=== PATIENT | male | born 1980 | race Caucasian/White ===

== ENCOUNTER 2020-12-22 10:31 | Emergency (ER) | payer OTHER ==
[~2020-12-22] VITALS: Ht 195.6 cm; Wt 131.5 kg
[~2020-12-22 10:31] MED LIST: CIPRO500 M1 PO; DEPRESSION PO; FLOMAX0.4 MG PO; HYDROCODONE-AP1 EAC6 PO; PERCOCET 5-3251 EACH PO; ZOFRAN4 MG PO
[2020-12-22] MEDS ORDERED: TESSALON PERLE100 MG PO (11:55)
[2020-12-22] MEDS ORDERED: PREDNISONE 20 M20 MG PO (11:55)
[2020-12-22 12:04] VITALS: BP 123/68
== END 2020-12-22 12:04 | disposition home or self-care (01) ==
LOC: M.ERS 10:31
DX: J20.9 Acute bronchitis, unspecified (principal); Z87.442 Personal history of urinary calculi